=== PATIENT | female | born 1940 | race Caucasian/White ===

== ENCOUNTER → 2021-11-26 | Emergency (ER) | payer MEDICARE ==
[~2021-11-26] VITALS: Ht 152.4 cm; Wt 72.2 kg
[~2021-11-26] MED LIST: ACETAMINOPHEN 500 MG TABLET PO ONE; IV NORMAL SALINE 1000ML BAG 1,000 ML IV ONE; ONDA4TAB12 PO; ONDANSETRON PF 4 MG/2 ML VIAL. IVP ONE; POTASSIUM BICARB 20 MEQ EFFERVESCENT TABLET. PO ONE
[2021-11-26 16:46] LABS: BASO % 1 % (0-3); EOS # 0.1 x10^3/uL (0.0-0.7); EOS % 2 % (0-3); HEMATOCRIT 35.1 % (36.0-47.0); HEMOGLOBIN 12.2 g/dL (12.0-15.5); LYMPH # 0.5 x10^3/uL (1.0-4.8); LYMPH % 7 % (24-48); MEAN CORPUSCULAR HEMOGLOBIN 30 pg (25-35); MEAN CORPUSCULAR HGB CONC 35 g/dL (31-37); MEAN CORPUSCULAR VOLUME 85 fL (79-100); MONO # 0.6 x10^3/uL (0.0-1.1); MONO % 9 % (0-9); NEUT # 5.3 x10^3/uL (1.8-7.7); NEUT % 81 % (31-73); PLATELET COUNT 203 x10^3/uL (140-400); RED BLOOD COUNT 4.15 x10^6/uL (3.50-5.40); RED CELL DISTRIBUTION WIDTH 13.3 % (11.5-14.5); WHITE BLOOD COUNT 6.5 x10^3/uL (4.0-11.0)
--- NOTE | 2021-11-26 17:01 | RAD ---
EXAM: CHEST 1 VIEW History: Fever COMPARISON: None available. TECHNIQUE: Single portable radiograph of the chest FINDINGS: The cardiac silhouette is unremarkable. Mild bibasilar lung airspace opacities likely atel ectasis or infiltrates. The costophrenic sulci are clear and well demarcated. IMPRESSION: Mild bibasilar lung airspace opacities likely atelectasis or infiltrates. Electronically signed by: Emory Werner MD (11/26/2021 4:59 PM) [id number]
[2021-11-26 17:18] LABS: CALCIUM 9.3 mg/dL (8.5-10.1); CREATININE 0.9 mg/dL (0.6-1.0); GFR 60.2; POTASSIUM 3.2 mmol/L (3.5-5.1)
[2021-11-26 17:22] LABS: ALBUMIN 3.7 g/dL (3.4-5.0); ALBUMIN/GLOBULIN RATIO 0.9 (1.0-1.7); MAGNESIUM 1.9 mg/dL (1.8-2.4); TOTAL BILIRUBIN 0.4 mg/dL (0.2-1.0); TOTAL PROTEIN 7.9 g/dL (6.4-8.2)
--- NOTE | 2021-11-26 17:27 | RAD ---
Examination: CT of the abdomen pelvis without contrast HISTORY: History of abdominal pain COMPARISON: None TECHNIQUE: Axial CT images of the abdomen pelvis without contrast. Coronal and sagittal reformats per formed Exposure: One or more of the following individualized dose reduction techniques were utilized for thi s examination: 1. Automated exposure control 2. Adjustment of the mA and/or kV according to patient size 3. Use of iterative reconstruction technique FINDINGS: The bibasilar lungs are clear. No evidence of free air identified in the abdomen. The evaluation of the solid organs is limited due to lack of IV contrast. The evaluation of bowel is limited due to lack of oral contrast. Small hiatal hernia. The visualized noncontrasted liver, spleen , adrenals grossly appears unremarkable. Gallbladder is mildly distended. The stomach is mildly diste nded. The small bowel is nondilated. Feces and gas noted in the colon. No evidence of intrarenal collecting system calculi or hydronephrosis. Moderate degenerative thoracol umbar spine. IMPRESSION: 1. No acute intra-abdominal findings. 2. Small hiatal hernia. Electronically signed by: Emory Werner MD (11/26/2021 5:25 PM) [id number]
[2021-11-26 17:30] LABS: CREATINE KINASE 65 U/L (26-192)
[2021-11-26 17:31] LABS: BARBITURATES NEG (NEG); BENZODIAZEPINES NEG (NEG); CANNABINOIDS NEG (NEG); COCAINE NEG (NEG); METHADONE NEG (NEG); OPIATES NEG (NEG); PHENCYCLIDINE NEG (NEG)
[2021-11-26 17:33] LABS: AMPHETAMINE/METHAMPHETAMINE NEG (NEG)
[2021-11-26 17:58] LABS: BACTERIA,URINE 0 /HPF (0-FEW)
[2021-11-26 17:59] LABS: RBC,URINE OCC /HPF (0-2); WBC,URINE OCC /HPF (0-4)
[2021-11-26 19:31] LABS: INFLUENZA A PATIENT NEGATIVE (NEGATIVE); INFLUENZA B PATIENT NEGATIVE (NEGATIVE)
--- NOTE | 2021-11-26 20:22 | PHYS DOC ---
Past Medical History Past Surgical History: Other Additional Past Surgical Histo: BROKEN BOTH ARMS SEVERAL TIMES Smoking Status: Never Smoker Alcohol Use: None General Adult EDM: Chief Complaint: WEAKNESS/GENERALIZED HPI: HPI: Patient is a 81 year old female no significant medical history presented to the ED today complaining of nausea, vomiting, subjective fevers, symptoms began today prior to coming to the ED. Patient is also complaining of generalized weakness that has been going on since she got the COVID-vaccine last year. Patient denies any headache, chest pain, shortness of breath. Denies any abdominal pain. Denies any urgency frequency or dysuria. Review of Systems: Review of Systems: Constitutional: Reports subjective fevers Eyes: Denies change in visual acuity. [] HENT: Denies nasal congestion or sore throat. [] Respiratory: Denies cough or shortness of breath. [] Cardiovascular: Denies chest pain or edema. [] GI: Reports nausea and vomiting, denies denies abdominal pain, bloody stools or diarrhea. [] : Denies dysuria. [] Musculoskeletal: Denies back pain or joint pain. [] Integument: Denies rash. [] Neurologic: Denies headache, focal weakness or sensory changes. [] Psychiatric: Denies depression or anxiety. [] Heart Score: C/O Chest Pain: N/A Risk Factors: Risk Factors: DM, Current or recent (<one month) smoker, HTN, HLP, family history of CAD, obesity. Risk Scores: Score 0 - 3: 2.5% MACE over next 6 weeks - Discharge Home Score 4 - 6: 20.3% MACE over next 6 weeks - Admit for Clinical Observation Score 7 - 10: 72.7% MACE over next 6 weeks - Early Invasive Strategies Current Medications: Current Medications Medications (Trade) Dose Ordered Sig/Lissette Start Time Stop Time Status Last Admin Dose Admin Acetaminophen (Tylenol) 1,000 mg 1X ONCE 11/26/21 16:30 11/26/21 16:31 DC 11/26/21 17:12 1,000 MG Ondansetron HCl (Zofran) 4 mg 1X ONCE 11/26/21 16:30 11/26/21 16:31 DC 11/26/21 17:10 4 MG Sodium Chloride 1,000 ml @ 1,000 mls/hr 1X ONCE 11/26/21 16:30 11/26/21 17:29 DC 11/26/21 17:08 1,000 MLS/HR Allergies: Allergies: Allergies Coded Allergies Type Severity Reaction Last Updated Verified No Known Drug Allergies 11/26/21 No Physical Exam: PE: Constitutional: Well developed, well nourished, no acute distress, non-toxic appearance. [] HENT: Normocephalic, atraumatic, bilateral external ears normal, oropharynx moist, no oral exudates, nose normal. [] Eyes: PERRLA, EOMI, conjunctiva normal, no discharge. [] Neck: Normal range of motion, no tenderness, supple, no stridor. [] Cardiovascular:Heart rate regular rhythm, no murmur [] Lungs & Thorax: Bilateral breath sounds clear to auscultation [] Abdomen: Bowel sounds normal, soft, no tenderness, no masses, no pulsatile masses. [] Skin: Warm, dry, no erythema, no rash. [] Back: No tenderness, no CVA tenderness. [] Extremities: No tenderness, no cyanosis, no clubbing, ROM intact, no edema. [] Neurologic: Alert and oriented X 3, normal motor function, normal sensory function, no focal deficits noted. [] Psychologic: Affect normal, judgement normal, mood normal. [] Current Patient Data: Labs: Laboratory Tests Test 11/26/21 16:30 11/26/21 17:00 11/26/21 19:05 White Blood Count 6.5 x10^3/uL (4.0-11.0) Red Blood Count 4.15 x10^6/uL (3.50-5.40) Hemoglobin 12.2 g/dL (12.0-15.5) Hematocrit 35.1 % (36.0-47.0) L Mean Corpuscular Volume 85 fL (79-100) Mean Corpuscular Hemoglobin 30 pg (25-35) Mean Corpuscular Hemoglobin Concent 35 g/dL (31-37) Red Cell Distribution Width 13.3 % (11.5-14.5) Platelet Count 203 x10^3/uL (140-400) Neutrophils (%) (Auto) 81 % (31-73) H Lymphocytes (%) (Auto) 7 % (24-48) L Monocytes (%) (Auto) 9 % (0-9) Eosinophils (%) (Auto) 2 % (0-3) Basophils (%) (Auto) 1 % (0-3) Neutrophils # (Auto) 5.3 x10^3/uL (1.8-7.7) Lymphocytes # (Auto) 0.5 x10^3/uL (1.0-4.8) L Monocytes # (Auto) 0.6 x10^3/uL (0.0-1.1) Eosinophils # (Auto) 0.1 x10^3/uL (0.0-0.7) Basophils # (Auto) 0.0 x10^3/uL (0.0-0.2) Sodium Level 138 mmol/L (136-145) Potassium Level 3.2 mmol/L (3.5-5.1) L Chloride Level 99 mmol/L (98-107) Carbon Dioxide Level 24 mmol/L (21-32) Anion Gap 15 (6-14) H Blood Urea Nitrogen 9 mg/dL (7-20) Creatinine 0.9 mg/dL (0.6-1.0) Estimated GFR (Cockcroft-Gault) 60.2 BUN/Creatinine Ratio 10 (6-20) Glucose Level 135 mg/dL (70-99) H Lactic Acid Level 1.8 mmol/L (0.4-2.0) Calcium Level 9.3 mg/dL (8.5-10.1) Magnesium Level 1.9 mg/dL (1.8-2.4) Total Bilirubin 0.4 mg/dL (0.2-1.0) Aspartate Amino Transferase (AST) 20 U/L (15-37) Alanine Aminotransferase (ALT) 22 U/L (14-59) Alkaline Phosphatase 62 U/L (46-116) Creatine Kinase 65 U/L (26-192) Creatine Kinase MB (Mass) ng/mL (0.0-3.6) Creatine Kinase MB Relative Index 0.8 % (0-4) Troponin I High Sensitivity 5 ng/L (4-50) DU-[id number]-B-Type Natriuretic Peptide 166 pg/mL (0-449) Total Protein 7.9 g/dL (6.4-8.2) Albumin 3.7 g/dL (3.4-5.0) Albumin/Globulin Ratio 0.9 (1.0-1.7) L Lipase 311 U/L (73-393) Procalcitonin < 0.10 ng/mL (0.00-0.10) Thyroid Stimulating Hormone (TSH) 1.312 uIU/mL (0.358-3.74) Urine Collection Type Unknown Urine Color (Auto) Light yellow Urine Turbidity Clear Urine pH (Auto) 7.5 (<5.0-8.0) Urine Specific [place] 1.014 (1.000-1.030) Urine Protein (Auto) Negative mg/dL (Negative) Urine Glucose (Auto)(UA) Negative mg/dL (Negative) Urine Ketones (Auto) 10 mg/dL (Negative) Urine Blood (Auto) Negative (Negative) Urine Nitrite Negative (Negative) Urine Bilirubin (Auto) Negative (Negative) Urine Urobilinogen (Auto) Normal mg/dL (Normal) Urine Leukocyte Esterase (Auto) Negative (Negative) Urine RBC Occ /HPF (0-2) Urine WBC Occ /HPF (0-4) Urine Squamous Epithelial Cells Occ /LPF Urine Bacteria 0 /HPF (0-FEW) Urine Opiates Screen Neg (NEG) Urine Methadone Screen Neg (NEG) Urine Barbiturates Neg (NEG) Urine Phencyclidine Screen Neg (NEG) Urine Amphetamine/Methamphetamine Neg (NEG) Urine Benzodiazepines Screen Neg (NEG) Urine Cocaine Screen Neg (NEG) Urine Cannabinoids Screen Neg (NEG) Urine Ethyl Alcohol Neg (NEG) Influenza Type A Antigen Negative (NEGATIVE) Influenza Type B Antigen Negative (NEGATIVE) SARS-CoV-2 Antigen (Rapid) Negative (NEGATIVE) Laboratory Tests 11/26/21 16:30 Laboratory Tests 11/26/21 16:30 Vital Signs: Vital Signs Date Time Temp Pulse Resp B/P (MAP) Pulse Ox O2 Delivery O2 Flow Rate FiO2 11/26/21 18:45 8 14 134/61 (85) 96 11/26/21 17:30 Room Air 11/26/21 16:05 102.0 102.0 EKG: EKG: [] Radiology/Procedures: Radiology/Procedures: []PROCEDURE: PORTABLE CHEST 1V EXAM: CHEST 1 VIEW History: Fever COMPARISON: None available. TECHNIQUE: Single portable radiograph of the chest FINDINGS: The cardiac silhouette is unremarkable. Mild bibasilar lung airspace opacities likely atelectasis or infiltrates. The costophrenic sulci are clear and well demarcated. IMPRESSION: Mild bibasilar lung airspace opacities likely atelectasis or infiltrates. Electronically signed by: Emory Werner MD (11/26/2021 4:59 PM) [id number] DICTATED and SIGNED BY: EMORY WERNER MD DATE: 11/26/21 297 PROCEDURE: CT ABDOMEN PELVIS WO CONTRAST Examination: CT of the abdomen pelvis without contrast HISTORY: History of abdominal pain COMPARISON: None TECHNIQUE: Axial CT images of the abdomen pelvis without contrast. Coronal and sagittal reformats performed Exposure: One or more of the following individualized dose reduction techniques were utilized for this examination: 1. Automated exposure control 2. Adjustment of the mA and/or kV according to patient size 3. Use of iterative reconstruction technique FINDINGS: The bibasilar lungs are clear. No evidence of free air identified in the abdomen. The evaluation of the solid organs is limited due to lack of IV contrast. The evaluation of bowel is limited due to lack of oral contrast. Small hiatal hernia. The visualized noncontrasted liver, spleen, adrenals grossly appears unremarkable. Gallbladder is mildly distended. The stomach is mildly distended. The small bowel is nondilated. Feces and gas noted in the colon. No evidence of intrarenal collecting system calculi or hydronephrosis. Moderate degenerative thoracolumbar spine. IMPRESSION: 1. No acute intra-abdominal findings. 2. Small hiatal hernia. Electronically signed by: Emory Werner MD (11/26/2021 5:25 PM) [id number] DICTATED and SIGNED BY: EMORY WERNER MD DATE: 11/26/21 774 Course & Med Decision Making: Course & Med Decision Making Pertinent Labs and Imaging studies reviewed. (See chart for details) This is a 81-year-old female patient presenting to the ED today complaining of nausea, vomiting, subjective fevers, symptoms began today. Also complaining of generalized weakness that began last year after receiving a COVID-vaccine. Vitals on arrival to the ED temperature 102.0, heart rate 98, respiration 18, blood pressure 141/83, O2 sats 96% on room air. CBC with a normal WBC, CMP with potassium of 3.2, given oral potassium replacement in the ED, lactic is normal, CT of the abdomen and pelvis is negative. EKG is negative. Troponin is normal. Lactic is normal, CK is normal. Negative influenza A and B test, negative rapid COVID test. UA is negative. Patient was given a liter of fluid, Zofran, Tylenol, she states she feels so much better. Requesting to be discharged to home. Road test done, she was able to tolerate ambulation. Discharged to home Dragon Disclaimer: Dragigor Disclaimer: This electronic medical record was generated, in whole or in part, using a voice recognition dictation system. Departure Departure Impression: Primary Impression: Generalized weakness Additional Impressions: Nausea and vomiting Qualified Codes: R11.2 - Nausea with vomiting, unspecified Fever Qualified Codes: R50.9 - Fever, unspecified Hypokalemia Disposition: HOME / SELF CARE / HOMELESS Condition: STABLE Referrals: NO PCP (PCP) follow up with your doctor on Sunday Patient Instructions: Nausea and Vomiting, [id number], Weakness Additional Instructions: You were evaluated in the emergency room for nausea, vomiting, fever, and weakness. Your work-up in the emergency room is negative for any acute findings including negative CT of the abdomen and pelvis. Your rapid COVID test is negative, your rapid flu test is negative. We encourage you to rest, push fluids. Take Zofran as needed for nausea or vomiting. Increase your dietary potassium intake. Follow-up with your doctor next week Scripts Ondansetron (ONDANSETRON ODT) 4 Mg Tab.rapdis 1 TAB PO PRN Q6-8HRS, #16 TAB Prov: SIMON JARRETT APRN 11/26/21 SIMON JARRETT APRN November 26, 2021 20:22
[2021-11-26 20:50] VITALS: BP 136/62
--- NOTE | 2021-11-27 06:37 | EKG ---
[facility] [address] [place] [address] Test Date: 2021-11-26 Test Time: 19:09:55 Pat Name: MARTITA CORTES Department: Room: Gender: F Steeple Jack: RANI : 1940 Requested By: SIMON JARRETT Order Number: [id number] Reading MD: Red Villareal Measurements Intervals [place] Rate: 78 P: -24 FL: 200 QRS: 14 QRSD: 84 T: 5 QT: 414 QTc: 476 Interpretive Statements SINUS RHYTHM PROLONGED QT Electronically Signed On 11-28-2021 10:06:53 CDT by Red Villareal
== END | disposition home or self-care (01) ==
LOC: ER 15:56
DX: R11.2 Nausea with vomiting, unspecified (principal); R53.1 Weakness; R50.9 Fever, unspecified; E87.6 Hypokalemia; K44.9 Diaphragmatic hernia without obstruction or gangrene
CPT/HCPCS: 36415; 71045; 74176; 80053; 80307; 81001; 82553; 83605; 83690; 83735; 83880; 84145; 84443; 84484; 85025; 87040; 87428; 93005; 96361; 96374; 99285; J2405; J7030